=== PATIENT | female | born 1950 | race Caucasian/White ===

== ENCOUNTER 2019-01-02 05:52 | Day surgery (SDC) | payer OTHER ==
[2018-12-31 12:17] VITALS: BP 145/73
[2018-12-31 12:29] LABS: CREATININE 0.9 mg/dL (0.5-1.5); POTASSIUM 4.1 mmol/L (3.5-5.1)
[2018-12-31 12:30] LABS: APPEARANCE,URINE Clear (CLEAR); BILIRUBIN,URINE Negative (NEGATIVE); COLOR,URINE Yellow (YELLOW); GLUCOSE, URINE (UA) Negative (NEGATIVE); KETONES,URINE Negative (NEGATIVE); LEUKOCYTE ESTERASE ,URINE Negative (NEGATIVE); NITRATE,URINE Negative (NEGATIVE); OCCULT BLOOD,URINE Negative (NEGATIVE); PH,URINE 6.5 (5.0-8.0); PROTEIN,URINE Negative (NEGATIVE); UROBILINOGEN,URINE 0.2 mg/dL (0.2-1.0)
[2018-12-31 12:37] LABS: INR 0.95 (0.85-1.15); PARTIAL THROMBOPLASTIN TIME 29.4 SEC (26.3-35.5)
[2018-12-31 12:57] LABS: BASOPHILS % (AUTO) 0.8 % (0.0-5.0); EOSINOPHILS % (AUTO) 5.3 % (0.0-8.0); HEMATOCRIT 40.9 % (36-48); LYMPHOCYTES % (AUTO) 26.7 % (21.0-51.0); MEAN CORPUSCULAR HEMOGLOBIN 29.9 pg (27.0-33.0); MEAN CORPUSCULAR HGB CONC 33.5 g/dL (32.0-36.0); MEAN CORPUSCULAR VOLUME 89.4 fL (79-99); NEUTROPHILS % (AUTO) 59.2 % (40.0-77.0); NUCLEATED RED BLOOD CELLS 0.1 % (0.0-0.19); PLATELET COUNT (AUTO) 218 K/uL (130-400); RED BLOOD CELL COUNT(AUTO) 4.57 MIL/uL (4.00-5.50); RED CELL DISTRIBUTION WIDTH 13.5 % (11.0-15.5); WHITE BLOOD COUNT (AUTO) 4.4 K/uL (4.8-10.8)
[~2019-01-02] VITALS: Ht 157.5 cm; Wt 111.9 kg
[2019-01-02] VITALS (12 sets, daily range): BP systolic 135–169; BP diastolic 56–124
[~2019-01-02 05:52] MED LIST: GABA-531 PO; ISOS10TA2 PO; LEVO50TA11 PO; NITR0.4T50 SL; SERT50TA PO; SODIUM CHLORIDE 0.9% 500ML 500 ML IV SCH; TELM1TAB31 PO
--- NOTE | 2019-01-02 06:10 | NUR ---
Pt admit to day room 16 PT admit ambulatory to day room 16. Spouse at bedside. Pt verified and aware of planned procedure. All questions answered. Allergy to ASA verified- states GI upset with medication. Assessment completed. Pt with noted ventral hernia, soft with hyperactive bowel sounds. States she is pending returning to see PCP for possible surgical intervention. Pt denies any chest pain at this time. Auscultation of a bradycardia arrhythmia. No distress noted at this time.
[2019-01-02] MEDS ORDERED: NITROGLYCERIN 5 MG/ML 10 ML VIAL IV ONE (08:38)
[2019-01-02] MEDS ORDERED: LIDOCAINE HCL 2% 20ML ONE (08:38)
[2019-01-02] MEDS ORDERED: IOHEXOL-350 50ML VIAL IV ONE (08:38)
[2019-01-02] MEDS ORDERED: IOHEXOL 350 MG/ML 100ML INFUS..BTL IV ONE (08:38)
--- NOTE | 2019-01-02 08:40 | NUR ---
Pt in route to dental laboratory worker Pt taken to dental laboratory worker by Gala SCHAEFER, Pt checks completed
[2019-01-02] MEDS ORDERED: ATROPINE SULFATE 0.1 MG/ML 10 ML SYG IVP ONE (09:09)
[2019-01-02] MEDS ORDERED: MIDAZOLAM HCL 1 MG/ML 2ML VIAL ONE (09:30)
[2019-01-02] MEDS ORDERED: SODIUM CHLORIDE 0.9% 1000ML 1,000 ML IV SCH (10:22)
--- NOTE | 2019-01-02 10:45 | NUR ---
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 Pt awake alert and oriented. Pt denies any discomfort at this time. Right groin perclose utilized, site soft and nontender. Bilateral pedal pulses +2. Post assessment completed. No distress noted. Will continue to monitor.
--- NOTE | 2019-01-02 15:30 | NUR ---
PT dc home PT continues AAOX3, denies any pain or discomfort at this time. Perclose to right groin dry and intact. Pt and spouse given discharge instructions given. 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 Additional followup appt with MD Pacheco on 01/09/19 at 845am at the [place] office. Pt given new medication prescription. PT is to start clopidogrel 75mg PO 12 tablet daily. Start atorvastatin 20mg one tablet by mouth in evenings. Pt is to discontinue isosorbide medication. Pt given [facility] puncture site care along with education on importance of bleeding complication preventions. Discharge assessment completed. PT dc via wheelchair.
== END 2019-01-02 15:30 | disposition home or self-care (01) ==
LOC: DAH 05:52
PROVIDERS: ATTEND Internal Medicine Cardiovascular Disease
DX: I25.118 Atherosclerotic heart disease of native coronary artery with other forms of angina pectoris (principal); I10 Essential (primary) hypertension; Z82.49 Family history of ischemic heart disease and other diseases of the circulatory system; Z88.8 Allergy status to other drugs, medicaments and biological substances; Z79.899 Other long term (current) drug therapy; E03.9 Hypothyroidism, unspecified; R07.9 Chest pain, unspecified; Z68.42 Body mass index [BMI] 45.0-49.9, adult; E66.01 Morbid (severe) obesity due to excess calories; R00.1 Bradycardia, unspecified
CPT/HCPCS: 36415; 71045; 80048; 81003; 85025; 85610; 85730; 93005; 93458; A4606; C1760; C1894; J1644; J2250; J3490 ×2; Q9965; Q9967 ×2; 99156; 99157; J0461